=== PATIENT | male | born 1995 | race Caucasian/White ===

== ENCOUNTER 2016-11-17 04:13 | Emergency (ER) | payer BC ==
[~2016-11-17] VITALS: Ht 182.9 cm; Wt 95.4 kg
[~2016-11-17 04:13] MED LIST: OXYC5TAB PO
[2016-11-17 04:16] VITALS: TEMP 36.3; Ht 182.9 cm; Wt 95.4 kg
[2016-11-17] MEDS ORDERED: KETOROLAC TROMETHAMINE 60 MG/2 ML VIAL IM STA (04:35)
[2016-11-17] MEDS ORDERED: DiphenhydrAMINE HCL 50 MG/ML VIAL IM STA (04:35)
--- NOTE | 2016-11-17 05:23 | EMERGENCY ROOM VISIT NOTE ---
History First contact with patient: 04:22 Chief Complaint: SUN BURN Stated Complaint: SUNBURN ON BACK History of Present Illness The patient is a 20 year old male who presents to the Emergency Room with complaints of a sunburn. The patient states that he returned from [place] yesterday. He reports that he sustained a sunburn 4 days ago. The symptoms have been gradually worsening. He applied aloe tonight and states that it caused his chest, back and arms to become very itchy. He took 1 tablet of Benadryl and states his symptoms improved slightly, but then worsened again. He rates his current discomfort a 7/10. He states that the itching is worse than the pain. He denies any blistering. Review of Systems A complete 10 point review of systems was reviewed with the patient with pertinent positives and negatives as per history of present illness. All else were negative. Social History Smoking Status: Never Smoker Current/Historical Medications No Active Prescriptions or Reported Meds Allergies Coded Allergies: No Known Allergies (Unverified , 11/17/16) Physical Exam Vital Signs Date Time Temp Pulse Resp B/P (MAP) Pulse Ox O2 Delivery O2 Flow Rate FiO2 11/17/16 05:25 80 18 144/85 97 Room Air 11/17/16 04:16 36.3 104 20 144/73 97 Room Air Physical Exam VITALS: Vitals are noted on the nurse's note and reviewed by myself. Vital signs stable. GENERAL: This is a 20-year-old male, in no acute distress, nondiaphoretic, well- developed well-nourished. SKIN: Diffuse erythema over the chest, back and bilateral arms. No blistering. No skin sloughing. HEART: Regular rate and rhythm without murmurs gallops or rubs. LUNGS: Clear to auscultation bilaterally without wheezes, rales or rhonchi. NEURO: Patient was alert and oriented to person place and time. Medical Decision & Procedures Medications Administered Medications (Trade) Dose Ordered Sig/[place] Start Time Stop Time Status Last Admin Dose Admin Diphenhydramine HCl (Benadryl Inj) 25 mg NOW STAT IM 11/17/16 04:35 11/17/16 04:37 DC 11/17/16 04:57 25 MG Ketorolac Tromethamine (Toradol Inj) 60 mg NOW STAT IM 11/17/16 04:35 11/17/16 04:37 DC 11/17/16 04:57 60 MG ED Course The patient was evaluated as above. Labs were drawn and IV access was obtained. Patient was medicated with 60 mg Toradol IM and 25 mg Benadryl IM. Patient was reevaluated and reported improvement of his symptoms. Discharge instructions were reviewed with the patient. The patient verbalized understanding of my assessment and treatment plan and was discharged home in good condition. Medical Decision Differential diagnosis includes sunburn, sun poisoning, among others. The patient is a 20-year-old male who presents today complaining of a sunburn. He was treated symptomatically with Toradol and Benadryl. He felt better. He was reassured and conservative measures were discussed. He will follow-up with his primary care provider as needed. He verbalized understanding and was discharged home in good condition. Medication reconciliation: I attest that I have personally reviewed the patient 's current medication list. Blood Pressure Screening: Patient was found to have a slightly elevated blood pressure due to circumstances. I do not believe that the patient requires hypertension monitoring. Impression Primary Impression: Sunburn of first degree Departure Information Dispostion Home / Self-Care Condition GOOD Prescriptions No Active Prescriptions or Reported Meds Referrals No Doctor, Assigned (PCP) Patient Instructions [facility] Additional Instructions Ibuprofen, 800 mg every 6 hours for pain/inflammation. Benadryl, 50 mg every 6 hours for itching. Apply a moisturizing cream to the areas of sunburn to prevent peeling and itching. Follow-up with your primary care provider as needed.
[2016-11-17 05:25] VITALS: BP 144/85; PULSE 80; O2SAT 97
== END 2016-11-17 05:30 | disposition home or self-care (01) ==
LOC: C.EDB 04:14 → C.EDA 05:30
DX: L55.0 Sunburn of first degree (principal)